=== PATIENT | male | born 1965 | race Caucasian/White ===

== ENCOUNTER → 2019-02-22 | Outpatient (CLI) | payer BC ==
--- NOTE | 2019-02-22 07:54 | US ---
EXAMINATION TYPE: US liver DATE OF EXAM: 02/22/2019 COMPARISON: NONE CLINICAL HISTORY: R74.8 Abnormal levels. Elevated liver enzymes, exam states no other symptoms EXAM MEASUREMENTS: Liver Length: 16.3 cm Gallbladder Wall: 0.2 cm CBD: 0.4 cm Right Kidney: 11.0 x 6.1 x 5.3 cm Pancreas: obscured by overlying midline bowel gas Liver: There is increased echogenicity of the hepatic parenchyma with diminished visualization of th e portal triads most commonly relating to hepatic steatosis and limiting evaluation for underlying he patic masses. Gallbladder: wnl Evidence for sonographic Keene's sign: no CBD: visualized portions wnl, limited by overlying bowel gas Right Kidney: wnl IMPRESSION: Sonographic findings most commonly related to hepatic steatosis, appearing mild in degree . Correlate with liver function test results.
== END | disposition home or self-care (01) ==
LOC: RADUSWWP 07:04
PROVIDERS: ATTEND Internal Medicine Gastroenterology
DX: R74.8 Abnormal levels of other serum enzymes (principal)
CPT/HCPCS: 76705

== ENCOUNTER → 2019-02-22 | Outpatient (CLI) | payer BC ==
[2019-02-22 16:44] LABS: Albumin 4.4 g/dL (3.80-4.90); Albumin/Globulin Ratio 2.59 (1.60-3.17); Bilirubin, Conjugated 0.3 mg/dL (0.20-0.40); Bilirubin,Unconjugated 0.5 mg/dL; Globulin 1.7 g/dL (1.6-3.3); Total Bilirubin 0.8 mg/dL (0.2-1.2); Total Protein 6.1 g/dL (6.2-8.2)
== END ==
LOC: LABWHC1 08:52
PROVIDERS: ATTEND Physician Assistant
DX: R74.8 Abnormal levels of other serum enzymes (principal)
CPT/HCPCS: 36415; 80076

== ENCOUNTER → 2022-01-20 | Outpatient (CLI) | payer BC ==
--- NOTE | 2022-01-20 09:07 | CT ---
EXAMINATION TYPE: CT lumbar spine wo con DATE OF EXAM: 01/20/2022 8:18 AM COMPARISON: Outside lumbar spine x-ray November 09, 2021. Whole body bone scan December 10, 2021 HISTORY: Radiculopathy, fall from ladder in August CT DLP: 1372 mGycm Automated exposure control for dose reduction was used. Unenhanced CT of the lumbar spine was performed. Bone and soft tissue window settings are submitted as well as coronal and sagittal reconstructions. There are 5 lumbar-type vertebra redemonstrated. Slight grade 1 retrolisthesis L2 on L3 is seen. Vert ebral body heights are maintained. Moderate disc space narrowing L2-L3 level with moderate spurring. Mild to moderate disc space narrowing and anterior spurring L3-L4 level. Mild disc space narrowing L4 -L5 level. Axial images at T12-L1 level appear within normal limits. Axial images at L1-L2 level mild facet arthropathy and ligamentum flavum hypertrophy effacing the pos terolateral thecal sac. There is [id number] broad disc bulge effacing the anterior thecal sac. Mild bilateral inferior neural foraminal narrowing is present. Axial images at L2-L3 level show mild/moderate facet arthropathy bilaterally with moderate posterior spurring effacing the anterior thecal sac on axial image 35. There is mild right-sided neural foramin al narrowing due to partial spine. Axial images at L3-L4 level shows mild facet arthropathy bilaterally. There is a patent spinal canal and bilateral neural foramina. Axial images at L4-L5 level show moderate to advanced facet arthropathy bilaterally. There is focal c entral disc protrusion effacing the anterior thecal sac. There is mild left-sided neural foraminal na rrowing due to marginal spurring and sagittal images. Axial images at L5-S1 level show moderate to advanced facet arthropathy bilaterally. Spinal canal is preserved. Bilateral neural foramina are patent. Paraspinal muscle bulk is maintained. IMPRESSION: Multilevel degenerative changes in the lumbar spine as detailed above.
== END | disposition home or self-care (01) ==
LOC: RADCTMAIN 07:48
PROVIDERS: ATTEND Physical Medicine & Rehabilitation
DX: M47.27 Other spondylosis with radiculopathy, lumbosacral region (principal); M41.26 Other idiopathic scoliosis, lumbar region; M48.062 Spinal stenosis, lumbar region with neurogenic claudication; M48.54XD Collapsed vertebra, not elsewhere classified, thoracic region, subsequent encounter for fracture with routine healing; M54.6 Pain in thoracic spine; M47.814 Spondylosis without myelopathy or radiculopathy, thoracic region; M47.812 Spondylosis without myelopathy or radiculopathy, cervical region; M43.12 Spondylolisthesis, cervical region
CPT/HCPCS: 72131

== ENCOUNTER → 2024-09-23 | Outpatient (CLI) | payer MEDICARE ==
--- NOTE | 2024-09-23 14:52 | CT ---
EXAMINATION TYPE: CT heart w calcium score DATE OF EXAM: 09/23/2024 COMPARISON: None CLINICAL INDICATION: Male, 59 years old with history of Z82.49 FAMILY HX OF ISCHEM HEART DIS AND OTH DIS O; PHH, family hx TECHNIQUE: Prospective Gating was used. Slice thickness: 3mm. Density threshold (HU): 130, Pixel threshold: 3, Algorithm: discrete. CT DLP: 288.2 mGycm Automated exposure control for dose reduction was used. FINDINGS: CT CALCIUM SCORING Coronary calcium is a marker for plaque (fatty deposits) in a blood vessel or atherosclerosis (harden ing of the arteries). The presence and amount of calcium detected in a coronary artery by the CT sca n, indicates the presence and amount of atherosclerotic plaque. These calcium deposits appear years before the development of heart disease symptoms such as chest pain and shortness of breath. A calcium score is computed for each of the coronary arteries based upon the volume and density of th e calcium deposits. This can be referred to as your calcified plaque burden. It does not correspond directly to the percentage of narrowing in the artery but does correlate with the severity of the un derlying coronary atherosclerosis. RESULTS Region: LM Calcium Score ([place]): 0 Volume (mm3): 0 Mass (g): 0 Region: RCA Calcium Score ([place]): 0 Volume (mm3): 0 Mass (g): 0 Region: LAD Calcium Score ([place]): 6.5 Volume (mm3): 0 Mass (g): 0 Region: CX Calcium Score ([place]): 0 Volume (mm3): 0 Mass (g): 0 Region: PDA Calcium Score ([place]): 0 Volume (mm3): 0 Mass (g): 0 Total: Calcium Score ([place]): 6.5 Volume (mm3): 16.56 TOTAL CALCIUM SCORE: 16.56 IMPRESSION: Calcium Score: 11-100 Implication: Definite, at least mild atherosclerotic plaque Risk of Coronary Artery Disease: Mild or minimal coronary narrowings likely. CALCIUM SCORE IMPLICATION RISK OF C ORONARY ARTERY DISEASE 0 No identifiable plaque Very low, generally less than 5% 1-10 Minimal identifiable plaque Very unlikely, less than 10% 11-100 Definite, at least mild atherosclerotic plaque Mild or m inimal coronary narrowings likely 101-400 Definite, at least moderate atherosclerotic plaque Mild coronary ar kathy disease highly likely, significant narrowing possible 401 or Higher Extensive atherosclerotic plaque High lik elihood of at least one significant coronary narrowing [facility], , 09/23/2024 2:49 PM
== END | disposition home or self-care (01) ==
LOC: RADCTMAIN 13:33
PROVIDERS: ATTEND Family Medicine
DX: I25.10 Atherosclerotic heart disease of native coronary artery without angina pectoris (principal); Z82.49 Family history of ischemic heart disease and other diseases of the circulatory system
CPT/HCPCS: 75571